=== PATIENT | female | born 1995 | race Caucasian/White ===

== ENCOUNTER → 2017-10-04 10:04 | Outpatient (CLI) | payer OTHER, SELFPAY ==
[2017-10-04 11:07] LABS: Add Manual Diff / Slide Review NO; Basophils Percent Auto 0.5 % (0-2); Eosinophils Percent Auto 0.9 % (2-4); Hematocrit 36.1 % (36-46); Hemoglobin 12.4 g/dL (12.0-16.0); Lymphocytes Percent Auto 17.2 % (25-40); Mean Corpuscular HGB Conc 34.4 % (30-36); Mean Corpuscular Hemoglobin 30.3 PG (26-34); Mean Corpuscular Volume 88.1 fL (80-100); Monocytes Percent Auto 6.6 % (3-14); Neutrophils Absolute Auto 5800 /uL (3000-5900); Neutrophils Percent Auto 74.8 % (50-75); Platelet Count 183 X10^3/uL (150-400); Red Cell Distribution Width 13.3 % (11.6-14.8); White Blood Cell Count 7.8 X10^3/uL (4.5-11.0)
[2017-10-05 13:32] LABS: HSV 2 IGG AB < 0.90 index (< 0.90); HSV1IGG < 0.90 index (< 0.90)
[2017-10-06 22:00] LABS: AFP, Serum 47.7 ng/mL; Calc Gestational Age 16.4; Cigarette Smoker N; Donated Egg NOT GIVEN; Donor Egg Age NOT GIVEN; Inhibin A, Dimeric 259 pg/mL; Maternal Weight 99 lbs; Number of Fetuses NOT GIVEN; Previous Pregnancy Down Syndro NOT GIVEN; hCG, MoM 2.06; hCG, Serum 84.8 IU/mL
== END ==
PROVIDERS: Visit Provider Obstetrics & Gynecology
DX: Z34.91 Encounter for supervision of normal pregnancy, unspecified, first trimester (principal)
CPT/HCPCS: 36415; 82105; 82677; 84702; 85025; 86336; 86695; 86696; 86787; 87077; 87086; 87186

== ENCOUNTER 2017-10-26 11:35 | Emergency (ER) | payer OTHER, SELFPAY ==
[2017-10-26 11:42] VITALS: BP 100/71; PULSE 87; RESP 20; TEMP 36.9; O2SAT 100; BMI 18.6
--- NOTE | 2017-10-26 11:45 | ED.ABDPAIN ---
HPI - Abdominal Pain General Chief Complaint: Abdominal Pain Stated Complaint: 19 wks preg/ abd pain Time Seen by Provider: 10/26/17 11:36 Source: patient Mode of arrival: EMS Limitations: no limitations History of Present Illness HPI narrative: patient is a 22-year-old at 19 weeks EGA by LMP with a known IUP here for evaluation of bilateral lower abdominal pain and upper abdominal pain since yesterday. Had nausea that started today. No fevers. No urinary symptoms. no change in bowel habits. Patient also states that just prior to her call to 911 she also had tingling to bilateral hands and also to bilateral legs below the knees. She states that that has resolved. She denies any vaginal bleeding or vaginal discharge. Related Data Home Medications Medication Instructions Recorded Confirmed 1 tab PO DAILY 10/04/17 10/26/17 vitamin,calcium,mlapmidb-gkns-vmovq acid tablet Allergies Allergy/AdvReac Type Severity Reaction Status Date / Time pamabrom [From MIDOL] Allergy Severe syncope Verified 10/26/17 11:49 and tachycardia Sulfa (Sulfonamide Allergy Mild rash Verified 10/26/17 11:49 Antibiotics) [SULFA (SULFONAMIDE ANTIBIOTICS)] steroids AdvReac Mild Burning Uncoded 10/04/17 09:26 sensation, whole body Review of Systems Constitutional Denies fever(s) and Denies headache(s) ENT Ears, Nose, Mouth, and Throat: Denies vertigo and Denies headache(s) Cardiovascular Reports chest pain ( Patient describes it as upper abdominal pain) and Denies dyspnea Respiratory Denies dyspnea Gastrointestinal Gastrointestinal: Reports abdominal pain, Denies constipation, Denies diarrhea, Reports nausea and Denies vomiting Genitourinary Denies dysuria, Denies urinary urgency and Denies vaginal discharge Musculoskeletal Comments: tingling to bilateral hands and bilateral lower extremities below the knees that has resolved Integumentary/Breasts Denies lesions and Denies rash Neurologic Denies vertigo and Denies headache(s) Hematologic/Lymphatic Denies easy bleeding and Denies easy bruising [facility] Medical History Anxiety (Chronic ~2013) Migraines (Chronic) Mitral valve prolapse (Chronic) (Chronic ~2017) Psoriasis (Chronic ~2014) Scoliosis (Chronic ~2006) Infertility (Resolved ~2016) Surgical History Anesthesia (Resolved) History of placement of ear tubes (Resolved) History of tonsillectomy (Resolved) Family History Father Hyperlipidemia Mother Mental health problem MVP (mitral valve prolapse) Sister MVP (mitral valve prolapse) Grandfather Stroke Myocardial infarction Pacemaker Grandfather Diabetes mellitus Stroke Grandmother Diabetes mellitus Social History Smoking Status: Never smoker Exam Initial Vital Signs Initial Vital Signs: Vital Signs Temperature 98.4 F 10/26/17 11:42 Pulse Rate 87 10/26/17 11:42 Respiratory Rate 20 10/26/17 11:42 Blood Pressure 100/71 10/26/17 11:42 Pulse Oximetry 100 10/26/17 11:42 Const General: cooperative, healthy appearing, comfortable, well developed, well groomed and No acute distress Orientation: alert, awake and oriented x3 HENMT Head: normal to inspection and normocephalic Resp Effort & Inspection: normal respiratory effort Auscultation: clear to auscultation bilaterally Cardio Rate: regular rate Rhythm: regular rhythm Pulses: radial pulses present GI Other: gravid abdomen. Bilateral lower abdominal pain right greater than left. No rebound or guarding Skin Lesions: no lesions Rashes: no rashes Neuro General: alert, awake and oriented x3 Cognition: normal cognition Speech: speech normal Extrem General: normal to inspection and capillary refill normal Psych Appearance: grossly normal and well kempt Course Orders Ordered: ED Orders 10/26/17 11:44 US OB limited Stat 10/26/17 11:59 Complete Blood Count AUTO DIFF Stat Comprehensive Metabolic Panel Stat Lipase Stat Sodium Chloride (Normal Saline 0.9%) 1,000 mls @ 1,000 mls/hr IV BOLUS ONE Stop: 10/26/17 12:53 Last Admin: 10/26/17 12:10 Dose: 1,000 mls/hr Vital Signs - 8 hr 10/26/17 11:42 10/26/17 12:10 10/26/17 12:33 Temperature 98.4 F Pulse Rate 87 87 96 H Respiratory Rate 20 15 24 Blood Pressure 100/71 Blood Pressure [Right Arm] 103/67 93/57 L Pulse Oximetry 100 99 100 MDM - Abdominal Pain Lab Data Attestation: I reviewed the patient's lab results. Result diagrams: 10/26/17 11:59 10/26/17 11:59 Lab Results 10/26/17 10/26/17 Range/Units 11:59 11:59 WBC 8.0 (4.5-11.0) X10^3/uL RBC 3.39 L (4.0-5.2) X10^6/uL Hgb 10.6 L (12.0-16.0) g/dL Hct 30.1 L (36-46) % MCV 88.6 (80-100) fL MCH 31.2 (26-34) PG MCHC 35.2 (30-36) % RDW 13.7 (11.6-14.8) % Plt Count 157 (150-400) X10^3/uL Neut % (Auto) 79.5 H (50-75) % Lymph % (Auto) 14.7 L (25-40) % [place] % (Auto) 4.9 (3-14) % Eos % (Auto) 0.5 L (2-4) % Baso % (Auto) 0.4 (0-2) % Neut # (Auto) 6400 H (7125-5166) /uL Sodium 137 (137-145) mmol/L Potassium 3.5 (3.4-5.1) mmol/L Chloride 104 (98-107) mmol/L Carbon Dioxide 23 (22-32) mmol/L BUN 5 L (7-17) mg/dL Creatinine 0.40 L (0.52-1.04) mg/dL Estimated GFR > 60.0 (>60) mL/min BUN/Creatinine Ratio 12.5 (6-22) Glucose 77 (70-100) mg/dL Calcium 8.7 (8.4-10.2) mg/dL Total Bilirubin 0.5 (0.2-1.3) mg/dL AST 15 (14-36) IU/L ALT 13 (9-52) IU/L Alkaline Phosphatase 42 (38-126) U/L Total Protein 6.5 (6.3-8.2) g/dL Albumin 3.7 (3.5-5.0) g/dL Globulin 2.8 (1.7-4.1) g/dL Albumin/Globulin Ratio 1.3 (1.0-2.8) Lipase 42 (23-300) U/L Point of care testing: Urine Dip Bedside Urine Glucose Negative Bedside Urine Bilirubin - Negative Bedside Urine Ketone - Negative Urine Specific [place] 1.025 Bedside Urine Occult Blood - Negative Bedside Urine pH 6.0 Bedside Urine Protein - Negative Bedside Urine Urobilinogen - Negative Bedside Urine Nitrite - Negative Bedside Urine Leukocytes - Negative Esterase Imaging Data US - abdomen: Radiologist's impression: PROCEDURE: US OB LIMITED INDICATIONS: 19 weeks EGA with bilateral lower abdominal pain OUTSIDE/PRIOR DATING DATA: Last menstrual period (LMP): 06/11/17. LMP-based estimated date of delivery (RENATO): 03/18/18. First dating scan (date and location): None. Estimated date of delivery (RENATO) from first dating scan: None. TECHNIQUE: Real-time scanning was performed of the fetus, with image documentation. Endovaginal scanning: None COMPARISON: None. FINDINGS: A single living intrauterine gestation is present. Presentation: Vertex. Placenta: Placental position is right lateral, without previa. Amniotic fluid index: 12.6 cm, normal range is 5-24 cm. heart rate: 136 beats per minute. Maternal cervical canal: 3.1 cm long. Normal lower limit is 2.5 cm. Estimated gestational age from initial scan: 19 week 0 day. Bilateral adnexa show no gross abnormality. IMPRESSION: Single live intrauterine . heart rate is 136 beats per minute. Estimated gestational age based on current study is 19 weeks 0 day. Estimated due date based on current study is 03/22/2018. No placenta previa. Dictated by: Farhad Cortes M.D. on 10/26/2017 at 12:21 Approved by: Farhad Cortes M.D. on 10/26/2017 at 12:27 MDM Narrative Medical decision making narrative: patient is nontoxic appearing. Urine is clean. Ultrasound shows a live IUP at 19 weeks EGA. Considered other diagnoses such as ovarian torsion and appendicitis however her physical exam is not consistent with torsion. Her white count is negative and she does not have any fevers. Will hold on further workup for appendicitis for now. I discussed all this with the patient. she does have scheduled follow-up with OB. She is on vitamins. She was given return precautions. She expressed understanding and agreement with plan. Discharge Plan Departure Patient Disposition: Home, Self-Care Clinical Impression: Abdominal pain affecting Instructions: DI for Abdominal Pain-Adult Activity Restrictions/Additional Instructions: continue to take your vitamins. Continue to increase your fluid intake. Keep all of your scheduled medical appointments. Return to the emergency department for any new or worsening symptoms. Prescriptions: No Action prenat.vits,conor,oal-unio-hziuc [ Vitamin] tablet 1 tab PO DAILY RF: 0
[2017-10-26 12:09] LABS: Add Manual Diff / Slide Review NO; Basophils Percent Auto 0.4 % (0-2); Eosinophils Percent Auto 0.5 % (2-4); Hematocrit 30.1 % (36-46); Hemoglobin 10.6 g/dL (12.0-16.0); Lymphocytes Percent Auto 14.7 % (25-40); Mean Corpuscular HGB Conc 35.2 % (30-36); Mean Corpuscular Hemoglobin 31.2 PG (26-34); Mean Corpuscular Volume 88.6 fL (80-100); Monocytes Percent Auto 4.9 % (3-14); Neutrophils Absolute Auto 6400 /uL (3000-5900); Neutrophils Percent Auto 79.5 % (50-75); Platelet Count 157 X10^3/uL (150-400); Red Blood Cell Count 3.39 X10^6/uL (4.0-5.2); Red Cell Distribution Width 13.7 % (11.6-14.8)
[2017-10-26 12:10] VITALS: BP 103/67; PULSE 87; RESP 15; O2SAT 99
[2017-10-26] MEDS: SODIUM CHLORIDE 0.9% 1,000 ML 1000 ML IV (12:10)
[2017-10-26 12:20] LABS: Alanine Aminotransferase 13 IU/L (9-52); Albumin 3.7 g/dL (3.5-5.0); Albumin Globulin Ratio 1.3 (1.0-2.8); Alkaline Phosphatase 42 U/L (38-126); Aspartate Aminotransferase 15 IU/L (14-36); BUN Creatinine Ratio 12.5 (6-22); Bilirubin Total 0.5 mg/dL (0.2-1.3); Blood Urea Nitrogen 5 mg/dL (7-17); Calcium 8.7 mg/dL (8.4-10.2); Carbon Dioxide 23 mmol/L (22-32); Chloride 104 mmol/L (98-107); Estimated Glomerular Filt Rate > 60.0 mL/min (>60); Globulin 2.8 g/dL (1.7-4.1); Glucose 77 mg/dL (70-100); HEMOLYSIS < 15 (0-50); Lipase 42 U/L (23-300); Potassium 3.5 mmol/L (3.4-5.1); Sodium 137 mmol/L (137-145); Total Protein 6.5 g/dL (6.3-8.2)
[2017-10-26 12:33] VITALS: BP 93/57; PULSE 96; RESP 24; O2SAT 100
[2017-10-26 12:47] VITALS: BP 103/63; PULSE 88; RESP 16; O2SAT 100
== END 2017-10-26 12:55 | disposition home or self-care (01) ==
PROVIDERS: Emergency Provider Emergency Medicine
DX: O26.899 Other specified pregnancy related conditions, unspecified trimester (principal); R10.9 Unspecified abdominal pain; Z3A.19 19 weeks gestation of pregnancy
CPT/HCPCS: 36415; 76815; 80053; 81003; 83690; 85025; 96360; 99283; 99284

== ENCOUNTER → 2017-11-01 08:00 | Outpatient (CLI) | payer OTHER, SELFPAY ==
--- NOTE | 2017-11-01 08:01 | DI.US.S_ITS ---
PROCEDURE: US OB >= 14 WEEKS FETUS INDICATIONS: ANATOMY OUTSIDE/PRIOR DATING DATA: Last menstrual period (LMP): 06/11/2017. LMP-based estimated date of delivery (RENATO): 03/18/2018. First dating scan (date and location): 10/26/2017 Estimated date of delivery (RENATO) from first dating scan: 03/22/2018. TECHNIQUE: Real-time scanning was performed of the fetus, with image documentation and biometric measurements. Endovaginal scanning: Not required COMPARISON: [facility], OB LIMITED, 10/26/2017, 12:05. FINDINGS: General: A single living intrauterine gestation is present. Presentation: Vertex. Placenta: Placental position is posterior, without previa. Amniotic fluid index: 13.4 cm, normal range is 5-24 cm. heart rate: 127 beats per minute. Maternal cervical canal: 3.6 cm long. Normal lower limit is 2.5 cm. biometrics: Biparietal diameter: 20.0 weeks Head circumference: 20 weeks one day Abdominal circumference: 19 weeks 6 days Femur length: 20 weeks one day Estimated gestational age from initial scan: not applicable. Composite gestational age from present scan: 20.0 weeks Estimated weight and percentile: 326 g at the 24th percentile Measurement variability for biometric dating: +/- 7 days from 14 weeks to 15 weeks 6 days gestation, +/- 10 days from 16 weeks to 21 weeks 6 days gestation, +/- 2 weeks from 22 weeks to 27 weeks 6 days gestation, +/- 3 weeks for 28 weeks gestation or later. weight reference: 4500 g or EFW >90/95% is considered macrosomia or large for gestational age. EFW <10% is small for gestational age. EFW 5% or less is considered intra-uterine growth restriction. Anatomic survey: Neuro: Ventricles are non-dilated at less than 10 mm. Cisterna magna is normal at 3-11 mm. Cerebellum is normal in size and morphology. Nuchal skin fold: Normal at less than 6 mm between 14-21 weeks gestational age. Face: Nose and lips, facial profile are normal. Spine: No evidence for spina bifida. Heart: 4-chambered heart is present, with normal ventricular outflow tracts. Diaphragm: Diaphragm is intact. Stomach: Left-sided stomach is present. Kidneys: No hydronephrosis. Normal is less than 5 mm in 2nd trimester, less than 7 mm in 3rd trimester. Cord: 3-vessel cord has orthotopic insertion. Bladder: Normal in size. Extremities: All 4 extremities identified. IMPRESSION: Single, live intrauterine gestation in Vertex lie showing composite gestational age of 20 weeks, normal anatomy. Dictated by: Manpreet Ambriz M.D. on 11/01/2017 at 9:08 Approved by: Manpreet Ambriz M.D. on 11/01/2017 at 9:13
== END ==
PROVIDERS: Visit Provider Obstetrics & Gynecology
DX: Z34.92 Encounter for supervision of normal pregnancy, unspecified, second trimester (principal); Z3A.20 20 weeks gestation of pregnancy
CPT/HCPCS: 76811

== ENCOUNTER 2017-12-27 11:23 | Outpatient (CLI) | payer OTHER, SELFPAY ==
[2017-12-27 12:51] LABS: Appearance Urine UA CLOUDY; Bilirubin Urine UA NEGATIVE (NEGATIVE); Color Urine UA YELLOW; Glucose Urine UA NEGATIVE (Normal); Ketones Urine UA NEGATIVE (NEGATIVE); Leukocyte Esterase Urine UA NEGATIVE (NEGATIVE); Nitrite Urine UA Negative (Negative); Occult Blood Urine UA NEGATIVE (Negative); Protein Urine UA NEGATIVE (Negative); Urobilinogen Urine UA 0.2 E.U./dL (0.2)
== END 2017-12-27 13:20 | disposition home or self-care (01) ==
LOC: LABOR 13:08 → OB 12-30 05:38
PROVIDERS: Visit Provider Obstetrics & Gynecology
DX: Z34.03 Encounter for supervision of normal first pregnancy, third trimester (principal); Z3A.28 28 weeks gestation of pregnancy; G43.909 Migraine, unspecified, not intractable, without status migrainosus
CPT/HCPCS: 59025; 81003; G0378; G0379

== ENCOUNTER → 2018-01-07 14:12 | Outpatient (CLI) | payer OTHER, SELFPAY ==
[2018-01-07 16:42] LABS: Hematocrit 27.1 % (36-46); Hemoglobin 9.3 g/dL (12.0-16.0)
[2018-01-07 16:44] LABS: GTT (PREG) 1 Hour PP 50gm Dose 86 mg/dL (76-139)
== END ==
PROVIDERS: PCP Internal Medicine; Visit Provider Obstetrics & Gynecology
DX: Z34.02 Encounter for supervision of normal first pregnancy, second trimester (principal)
CPT/HCPCS: 36415; 82950; 85014; 85018; 86850

== ENCOUNTER 2018-01-20 09:52 | Observation (INO) | payer OTHER, SELFPAY ==
[2018-01-20 12:18] LABS: Bacteria Urine None Seen; RBC Urine None Seen (0-5/HPF)
[2018-01-20 12:22] LABS: Appearance Urine UA CLEAR; Bilirubin Urine UA NEGATIVE (NEGATIVE); Color Urine UA YELLOW; Glucose Urine UA NEGATIVE (Normal); Ketones Urine UA NEGATIVE (NEGATIVE); Leukocyte Esterase Urine UA NEGATIVE (NEGATIVE); Nitrite Urine UA NEGATIVE (Negative); Occult Blood Urine UA NEGATIVE (Negative); Protein Urine UA NEGATIVE (Negative); Urobilinogen Urine UA 0.2 E.U./dL (0.2); pH Urine UA 7.5 (4.5-8.0)
[2018-01-20 12:38] LABS: Culture Indicated Urine Cult Not Indicated; Squamous Epithelial Cell Urine 0-1 /HPF; WBC Urine 0-1/HPF (0-5/HPF)
== END 2018-01-20 12:50 | disposition home or self-care (01) ==
PROVIDERS: Admitting Provider Obstetrics & Gynecology; PCP Internal Medicine; Visit Provider Obstetrics & Gynecology
DX: Z34.90 Encounter for supervision of normal pregnancy, unspecified, unspecified trimester (principal)
CPT/HCPCS: 59025; 59050; 81001; G0378; G0379

== ENCOUNTER → 2018-02-16 12:50 | Outpatient (CLI) | payer OTHER, SELFPAY ==
[2018-02-17 08:57] LABS: Strep Grp B PCR NEG for Grp B Strep
== END ==
PROVIDERS: PCP Internal Medicine; Visit Provider Obstetrics & Gynecology
DX: Z34.03 Encounter for supervision of normal first pregnancy, third trimester (principal); Z3A.35 35 weeks gestation of pregnancy
CPT/HCPCS: 87653

== ENCOUNTER 2018-03-17 18:05 | Observation (INO) | payer OTHER, SELFPAY ==
[2018-03-17 19:11] LABS: Add Manual Diff / Slide Review NO; Basophils Percent Auto 0.3 % (0-2); Eosinophils Percent Auto 0.7 % (2-4); Hematocrit 34.3 % (36-46); Hemoglobin 11.4 g/dL (12.0-16.0); Lymphocytes Percent Auto 13.5 % (25-40); Mean Corpuscular HGB Conc 33.1 % (30-36); Mean Corpuscular Hemoglobin 28.5 PG (26-34); Mean Corpuscular Volume 86.1 fL (80-100); Monocytes Percent Auto 7.3 % (3-14); Neutrophils Absolute Auto 10500 /uL (1500-7000); Neutrophils Percent Auto 78.2 % (50-75); Platelet Count 211 X10^3/uL (150-400); Red Blood Cell Count 3.99 X10^6/uL (4.0-5.2); Red Cell Distribution Width 15.4 % (11.6-14.8); White Blood Cell Count 13.4 X10^3/uL (4.5-11.0)
[2018-03-17] MEDS: miSOPROStol 25 MCG TABLET VAG (19:33)
[2018-03-18] MEDS: miSOPROStol 25 MCG TABLET VAG (07:46)
== END 2018-03-18 14:00 | disposition home or self-care (01) ==
PROVIDERS: Admitting Provider Obstetrics & Gynecology; PCP Internal Medicine; Visit Provider Obstetrics & Gynecology
DX: Z34.83 Encounter for supervision of other normal pregnancy, third trimester (principal); Z3A.40 40 weeks gestation of pregnancy
CPT/HCPCS: 59050; 59200; 85025; 86850; 86900; 86901; G0378; G0379

== ENCOUNTER 2018-03-18 17:47 | Inpatient (IN) | payer OTHER, SELFPAY ==
[2018-03-18 18:20] VITALS: BP 117/76
[2018-03-19] MEDS: LACTATED RINGERS 1,000 ML 100 ML IV ×4 (06:36→20:14)
[2018-03-19] MEDS: CEFAZOLIN 2 GM/100 ML FROZ.PIGGY IV (06:36)
[2018-03-19] MEDS: OXYTOCIN PREMIX 30 UNIT/500 ML PLAST..BAG IV (07:06)
[2018-03-19] MEDS: CEFAZOLIN 1 GM/50 ML FROZ.PIGGY IV ×2 (14:46→22:20)
[2018-03-20] MEDS: LACTATED RINGERS 1,000 ML 100 ML IV (03:01)
--- NOTE | 2018-03-20 06:09 | PM.OBPNLAB ---
Date/Time Date Patient Seen: 03/20/18 Time Patient Seen: 06:09 Pain Control Pain control: epidural Comments: Replaced x1 and recently bolused patient is still feeling peak of contractions. I was called in for tachycardia and no significant cervical change with Pitocin for 3 hr. Patient does not have any fevers. Her uterus is nontender although she does have an epidural. Internal toco was placed with contraction peak at 40 mm of mercury. No smell to the amniotic fluid. Urine output is good. Patient is getting antibiotics. Patient believes her tachycardia was the pain. Pelvic Exam Dilation (cm): 7 Effacement (%): 95 station: 0 Contractions Contractions on admission: irregular Monitor mode: External Pitocin rate (mU/min): 3 Contraction frequency (min): 4 Contraction duration (min): 1 Contraction pattern: Regular Contraction intensity: Moderate Status status: Category l Heart Rate Baseline: 120 Monitor Accelerations: Present Monitor Decelerations: Absent Monitor Variability: Moderate Assessment and Plan Assessment: induction ongoing Comments: Ongoing induction with current no change in contractions with Pitocin. Internal toco was placed in it does appear the contractions are not adequate so the Pitocin will be increased. No evidence of chorioamnionitis at this time.
[2018-03-20] MEDS: CEFAZOLIN 1 GM/50 ML FROZ.PIGGY IV (06:32)
--- NOTE | 2018-03-20 08:51 | PM.PREOP ---
Pre-operative Note Interval Note Pre-op Check: Yes History & Physical exam performed today by Physician Changes: No
[2018-03-20] MEDS: CEFAZOLIN 2 GM/100 ML FROZ.PIGGY IV (09:02)
--- NOTE | 2018-03-20 09:28 | SUR.PREOP ---
Direct admit to OR at 0850 from . No time in preop.
--- NOTE | 2018-03-20 09:30 | SUR.OPER ---
Supine on Padded OR bed, head on pillow, safety belt at thigh, arms secured on padded arm boards at <90 degrees abduction. Bump under right buttock. Legs uncrossed with pillow under knees, gel pad to heels, tape over blanket to lower legs.
--- NOTE | 2018-03-20 09:43 | SUR.OPER ---
Healthy boy born at 0924, FHT 141.
[2018-03-20 09:54] VITALS: BP 112/71; PULSE 78; RESP 12; TEMP 36.5; O2SAT 100
[2018-03-20 09:59] VITALS: BP 117/69; PULSE 85; RESP 16; O2SAT 99
[2018-03-20 10:05] VITALS: BP 111/73; PULSE 80; RESP 18; O2SAT 99
[2018-03-20 10:10] VITALS: BP 109/72; PULSE 80; RESP 18; TEMP 36.4; O2SAT 100
[2018-03-20 10:15] VITALS: BP 110/71; PULSE 82; RESP 16; O2SAT 100
--- NOTE | 2018-03-20 10:24 | SUR.PHASEI ---
Ring set and necklace to center with the patient.
--- NOTE | 2018-03-20 10:25 | SUR.PHASEI ---
IVF with Pitocin so bag not discontinued and brought to [facility] with patient ongoing.
[2018-03-20] MEDS: LACTATED RINGERS 1,000 ML 42 ML IV (11:00)
--- NOTE | 2018-03-20 15:48 | SUR.OPER ---
Healthy baby boy born at 0924, FHT 141.
[2018-03-20] MEDS: KETOROLAC 30 MG/ML VIAL IV (18:34)
[2018-03-21] MEDS: KETOROLAC 30 MG/ML VIAL IV ×2 (00:19→06:35)
[2018-03-21 07:16] LABS: Add Manual Diff / Slide Review NO; Basophils Percent Auto 0.4 % (0-2); Eosinophils Percent Auto 0.7 % (2-4); Hematocrit 26.4 % (36-46); Hemoglobin 8.7 g/dL (12.0-16.0); Lymphocytes Percent Auto 13.5 % (25-40); Mean Corpuscular HGB Conc 32.8 % (30-36); Mean Corpuscular Hemoglobin 28.5 PG (26-34); Mean Corpuscular Volume 86.8 fL (80-100); Monocytes Percent Auto 8.8 % (3-14); Neutrophils Absolute Auto 10400 /uL (1500-7000); Neutrophils Percent Auto 76.6 % (50-75); Platelet Count 146 X10^3/uL (150-400); Red Blood Cell Count 3.04 X10^6/uL (4.0-5.2); Red Cell Distribution Width 15.5 % (11.6-14.8); White Blood Cell Count 13.5 X10^3/uL (4.5-11.0)
[2018-03-21] MEDS: DOCUSATE 250 MG CAPSULE PO (10:23)
[2018-03-21] MEDS: PRENATAL VIT,CALC/IRON/FOLIC 1 TABLET 1 TAB PO (10:23)
[2018-03-21 12:15] VITALS: TEMP 37.8
[2018-03-21] MEDS: IBUPROFEN 600 MG TABLET PO ×2 (12:15→18:37)
[2018-03-21] MEDS: OXYCODONE/ACETAMINOPHEN 5/325 TABLET 1 TAB PO (22:17)
[2018-03-22] MEDS: IBUPROFEN 600 MG TABLET PO ×2 (00:28→08:07)
[2018-03-22 01:00] VITALS: TEMP 37.1
[2018-03-22 07:15] VITALS: BP 110/71; PULSE 82; RESP 16; TEMP 37.1
[2018-03-22] MEDS: OXYCODONE/ACETAMINOPHEN 5/325 TABLET 1 TAB PO (08:07)
[2018-03-22] MEDS: DOCUSATE 250 MG CAPSULE PO (08:07)
[2018-03-22] MEDS: PRENATAL VIT,CALC/IRON/FOLIC 1 TABLET 1 TAB PO (08:07)
[2018-03-22] MEDS: LANOLIN OINT 7 GM 1 APPLIC TOP (09:42)
--- NOTE | 2018-04-27 14:05 | P.OP_ITS ---
Operative Date/Time/Diagnoses Date of procedure: 03/20/18 Time of procedure: 10:10 Pre-op diagnosis: Stage I arrest of labor Occiput posterior presentation Post-op diagnosis: same Procedure: Procedures Operation Date: 03/20/18 08:45 Actual Procedures Side Surgeon p Section Meredith Augustin MD Indications: Stage I arrest of labor Occiput posterior presentation Surgeon: Meredith Augustin Anesthesia Type: Epidural Operative Notes Findings: Infant in the occiput posterior presentation Normal uterus, tubes, and ovaries Closure Type: primary Specimen(s): other (Cord blood, placenta) Applied: catheter Estimated blood loss (mL): 350 Blood products transfused: none Procedure in detail: After informed consent was obtained, the patient was taken to the operating room where she was placed in the dorsal supine position with a leftward tilt. She was prepped and draped in the usual sterile fashion. A timeout was performed. After epidural analgesia was found to be adequate, a Pfannenstiel skin incision was made 2 fingerbreadths above the pubic symphysis and carried through to the underlying layer fascia. The fascia was nicked in the midline, and the incision extended bilaterally with the Garcia scissors. The superior aspect of the fascial incision was grasped with a [place] clamps, elevated, and the underlying rectus muscles dissected off sharply and bluntly. Attention was then turned to the inferior aspect of this incision which in a similar fashion was grasped with a [place] clamps, elevated, and the underlying rectus muscles dissected off sharply and bluntly. The rectus muscles were in the midline. The peritoneum was identified, grasped between 2 hemostats, and entered sharply with the Metzenbaum scissors. This incision was extended superiorly and inferiorly with good visualization of the bladder. The bladder blade was inserted. The vesicouterine peritoneum was identified, grasped with a pickup, and entered sharply with the Metzenbaum scissors. This incision was extended bilaterally, and the bladder flap was created digitally. The bladder blade was reinserted. The lower uterine segment was incised in a transverse fashion with the scalpel. Upon entering the amniotic sac there was a small amount of clear amniotic fluid. The 's head was delivered without difficulty. The nose and mouth were suctioned with bulb suction. The remainder of the body delivered without difficulty. The cord was double clamped and cut. The infant was handed off to waiting RN and RT. The placenta was delivered manually. The uterus was cleared of all clots and debris. The uterine incision was repaired with #1 chromic in a running interlocking fashion , and a second layer the same suture was used for an imbricating layer. Hemostasis was achieved. The tubes and ovaries were examined and were found to be normal. The gutters were cleared of all clots and debris. The bladder flap was reapproximated using 2-0 Vicryl in a running fashion. The parietal peritoneum was closed using 2-0 Vicryl in a running fashion. The fascia was reapproximated using 0 Vicryl in a running fashion. Subcutaneous layer was copiously irrigated with warm normal saline. 5 simple interrupted sutures of 3- 0 Vicryl were placed to reapproximate the subcutaneous layer. The skin was closed with 4-0 undyed Vicryl in a subcuticular fashion. Steri-Strips were placed. An Aquacel dressing was placed. The uterus was expressed of a small amount of old blood. Sponge, lap, and instrument counts were correct x-2. The patient tolerated the procedure well, and was taken to PACU in stable condition. Complications: none Post-operative Condition: stable Disposition: PACU Plan for aftercare: To the Center after recovery
--- NOTE | 2018-04-28 16:05 | P.DS_ITS ---
Discharge Providers Date of admission: 03/18/18 17:47 Primary care physician: AMEYA Montes Consults: 03/20/18 09:52 Consult to Comparator Operator Routine Comment: 03/20/18 11:11 Consult to Comparator Operator Routine Comment: Discharge provider: Meredith Augustin MD Discharge Date: 03/22/18 Summary Date Patient Seen: 03/22/18 Time Patient Seen: 07:30 Hospital Course: Patient is a 23-year-old 1 para 1 who presented at 40 weeks gestation with spontaneous rupture of membranes. She had a prolonged early stage of labor and finally underwent a primary section on 03/20/2018 at 9:22 a.m. in the morning due to a stage I arrest of labor. She had thick meconium-stained amniotic fluid. The baby was in the right occiput transverse presentation. Her course was unremarkable. She was discharged home on postop day # 2 tolerating a diet, voiding without the catheter, ambulating, and controlling the pain with pain pills. Peripartum Data Infant Delivery Method: Section (Stage I arrest of labor, RO T) Laceration description: None Episiotomy description: None Procedures: Epidural analgesia Spinal anesthesia for the Primary low-transverse section complications: none Status at Discharge Functional status at discharge: independent ambulation Overall status at discharge: patient is progressing back to baseline Time Spent with Patient Total time spent providing and/or coordinating discharge services: Less than 30 minutes Objective Labs Result Diagrams: 03/21/18 06:34 Discharge Plan Discharge Plan Patient Disposition: Home Discharge comment: Call with fever, chills, redness or drainage around the incision or bleeding vaginally more than a pad in an hour Alternate Ibuprofen and Tylenol Use stool softner until back to normal Discharge Med Rec/Prescriptions Prescriptions: New oxycodone-acetaminophen [Percocet] 5-325 mg tablet 1 tab PO Q4-6H PRN (Reason: pain) Qty: 20 RF: 0 Continue prenat.vits,conor,kwf-ecap-ehoay [ Vitamin] tablet 1 tab PO DAILY RF: 0 No Action Double Electric Breast Pump Qty: 1 RF: 0 Follow up/Referrals: [facility] [Provider Group] Meredith Augustin MD [Physician] - 1 Week (Aquacel dressing removal. My office will call pt on 03/23/18 to schedule removal) Libby Camejo ARNP [Primary Care Provider] - Provider Discharge Instructions Diet: Diet as Tolerated Activity: No heavy lifting No intercourse Skin/Wound/Dressing Care Report to your healthcare provider any signs of infection, such as:: chills, fever, increased pain and unusual redness Dressing: Do not remove Visit Report/Discharge Packet Instructions: DI for Stand Alone Forms: Discharge: Care Visit Report Forms: Stroke Signs & Symptoms Discharge Data Primary Care Provider: Libby Camejo Attending Provider: Kendra Bran Admit Date/Time: 03/18/18 17:47 Discharges patient from system. Discharge Date/Time: 03/22/18 10:15
== END 2018-03-22 10:15 | disposition home or self-care (01) | DRG 788 ==
PROVIDERS: Obstetrics & Gynecology; Admitting Provider Specialist; PCP Internal Medicine; Visit Provider Specialist
PROC: 10D00Z1 Extraction of Products of Conception, Low, Open Approach (ICD-10-PCS; CPT 59514; principal; 2018-03-20 08:45)
DX: O64.0XX0 Obstructed labor due to incomplete rotation of fetal head, not applicable or unspecified (principal); O62.1 Secondary uterine inertia; Z3A.40 40 weeks gestation of pregnancy; Z37.0 Single live birth; O77.0 Labor and delivery complicated by meconium in amniotic fluid
CPT/HCPCS: 01967; 01968; 36415; 59050; 59510; 85025; 86850; 86900; 86901; G0379; J0690; J1885; J2274; J2590; J3010